=== PATIENT | male | born 1990 | race Caucasian/White ===

== ENCOUNTER 2019-11-16 09:59 | Emergency (ER) | payer SELFPAY ==
[~2019-11-16] VITALS: Ht 188 cm; Wt 82.0 kg
[2019-11-16 10:09] VITALS: BP 136/87
[2019-11-16] MEDS ORDERED: LIDOCAINE 2%/EPI 1:100,000 20 ML VIAL. IJ ONE (10:15)
[2019-11-16] MEDS ORDERED: SENN-121 PO (11:11)
--- NOTE | 2019-11-16 11:14 | PHYS DOC ---
Past History Past Medical History: No Pertinent History Past Surgical History: No Surgical History Smoking: Cigarettes Alcohol Use: Rarely Drug Use: Marijuana General Adult EDM: Chief Complaint: HEMORRHOIDS HPI: HPI: 29-year-old male presents with report of rectal pain and swelling which started yesterday. Patient reports pain is significant only worst this morning. Denies taking any medication prior to arrival. Reports history of hemorrhoids. Denies trauma. Reports some bleeding on wiping. Review of Systems: Review of Systems: Constitutional: Denies fever or chills Eyes: Denies redness or eye pain HENT: Denies nasal congestion or sore throat Respiratory: Denies cough or shortness of breath Cardiovascular: Denies chest pain or palpitations GI: Denies abdominal pain, nausea, or vomiting; reports rectal pain and bleeding : Denies dysuria or hematuria Musculoskeletal: Denies back pain or joint pain Integument: Denies rash or skin lesions Neurologic: Denies headache, focal weakness or sensory changes Complete systems were reviewed and found to be within normal limits, except as documented in this note. Current Medications: Current Meds: Current Medications Medications (Trade) Dose Ordered Sig/Joel Start Time Stop Time Status Last Admin Dose Admin Lidocaine/ Epinephrine (Xylocaine 2%-Epi 1:100,000) 20 ml 1X ONCE 11/16/19 10:15 11/16/19 10:16 DC 11/16/19 10:28 20 ML Allergies: Allergies: Allergies Coded Allergies Type Severity Reaction Last Updated Verified cephalexin Allergy Unknown 11/16/19 Yes Physical Exam: PE: Constitutional: Well developed, well nourished, uncomfortable, non-toxic appearance HENT: Normocephalic, atraumatic, oropharynx moist Eyes: Conjunctiva normal, no discharge Neck: Normal range of motion, no tenderness, supple Cardiovascular: Heart rate normal, regular rhythm Lungs & Thorax: Bilateral breath sounds clear to auscultation, no wheezing Abdomen: Soft, no tenderness, no guarding/rebound tenderness/distention Rectal: Large 3 cm x 2 cm external thrombosed hemorrhoid at 5 o'clock position, no active bleeding Skin: Warm, dry, no erythema, no rash Extremities: No tenderness, ROM intact, no edema Neurologic: Alert and oriented X 3, normal motor function, normal sensory function, no focal deficits noted Psychologic: Affect normal, judgment normal Current Patient Data: Vital Signs: Vital Signs Date Time Temp Pulse Resp B/P (MAP) Pulse Ox O2 Delivery O2 Flow Rate FiO2 11/16/19 10:09 98.2 108 16 136/87 (103) 97 Room Air EKG: EKG: [] Radiology/Procedures: Radiology/Procedures: [] Course & Med Decision Making: Course & Med Decision Making Patient presents with history of present illness and physical exam consistent for thrombosed external hemorrhoid. I&D performed with excision of a roof and removal of large clots. Interval improvement noted. Patient stable for discharge with outpatient follow-up with PCP/surgery. Surgery referral provided. Discussed findings and plan with patient, who acknowledges understanding and agreement. Dragon Disclaimer: [employer] Disclaimer: This electronic medical record was generated, in whole or in part, using a voice recognition dictation system. Incision and Drainage Incision and Drainage : Site: Thrombosed external hemorrhoid at 5o'clock position Blade Size: 15 I & D Procedure: sterile dressing applied Progress Verbal consent obtained. Time out performed. Hand hygiene utilized. Wound cleaned with ChloraPrep. Anesthesia obtained via a 25-gauge hypodermic needle w ith (8) mL's of lidocaine 2% with epinephrine. Roof of thrombosed hemorrhoid excised with 15 blade scapel. Large clots removed with curved Kandy clamp. Copious irrigation performed. Patient tolerated procedure well and without difficulty. Sterile dressing applied. Departure Departure: Impression: Primary Impression: External thrombosed hemorrhoids Disposition: 01 HOME, SELF-CARE Condition: STABLE Referrals: PCP,RACIEL (PCP) VALERIE MOYER MD Patient Instructions: Hemorrhoidectomy, Care After, Hemorrhoids, [id number] Additional Instructions: Use over the counter Tylenol and/or Ibuprofen for pain or discomfort. Use stool softeners to prevent constipation. Take the suppositories in future for further hemorrhoid issues. Use Sitz baths up to 2x daily. Make sure to shower after any bowel movement. Clean wound with soap and water. Keep area clean and dry. Scripts Hydrocortisone Acetate (ANUSOL-HC) 25 Mg Supp.rect 1 SUPP RC BID PRN for HEMORRHOIDS, #14 SUPP 0 Refills Prov: ARIANA ALMANZAR DO 11/16/19 Sennosides/Docusate Sodium (Colace 2-in-1 Tablet) 1 Each Tablet 1 TAB PO BID for Hemorrhoids, #20 TAB 0 Refills Prov: ARIANA ALMANZAR DO 11/16/19 ARIANA ALMANZAR DO Nov 16, 2019 11:14
[2019-11-16] MEDS ORDERED: HYDR25SU18 RC (11:15)
== END 2019-11-16 11:18 | disposition home or self-care (01) ==
LOC: ER 09:59
DX: K64.5 Perianal venous thrombosis (principal); F17.210 Nicotine dependence, cigarettes, uncomplicated; Z88.1 Allergy status to other antibiotic agents
CPT/HCPCS: 46083; 99284